=== PATIENT | male | born 1995 | race African-American/Black ===

== ENCOUNTER 2018-07-28 16:48 | Emergency (ER) | payer MEDICAID ==
[2018-07-28 18:01] LABS: ABSOLUTE BASOPHILS # (AUTO) 0.1 10^3/uL (0.0-0.2); ABSOLUTE EOSINOPHILS # (AUTO) 0.1 10^3/uL (0.0-0.6); ABSOLUTE MONOCYTES (AUTO) 0.8 10^3/uL (0.1-1.4); ABSOLUTE NEUT (AUTO) 6.9 10^3/uL (1.7-8.2); BASOPHILS % (AUTO) 0.6 % (0-2); EOSINOPHILS % (AUTO) 0.7 % (0-6); HEMATOCRIT 41.7 % (37.9-51.0); HEMOGLOBIN 14.2 g/dL (13.5-17.0); LYMPHOCYTES % (AUTO) 19.9 % (13-45); MEAN CORPUSCULAR HEMOGLOBIN 29.8 pg (27.0-33.4); MEAN CORPUSCULAR HGB CONC 34.1 g/dL (32.0-36.0); MEAN CORPUSCULAR VOLUME 87 fl (80-97); MONOCYTES % (AUTO) 8.1 % (3-13); PLATELET COUNT 157 10^3/uL (150-450); RED BLOOD COUNT 4.78 10^6/uL (4.35-5.55); RED CELL DISTRIBUTION WIDTH 13.4 % (11.5-14.0); SEGMENTED NEUTROPHILS % (AUTO) 70.7 % (42-78); TOTAL CELLS COUNTED % (AUTO) 100 %; WHITE BLOOD COUNT 9.8 10^3/uL (4.0-10.5)
--- NOTE | 2018-07-28 18:24 | RADIOLOGY REPORT (SQ) ---
EXAM DESCRIPTION: CT FACIAL AREA WITHOUT COMPLETED DATE/TIME: 07/28/2018 6:08 pm REASON FOR STUDY: eval for mastoiditis COMPARISON: None. TECHNIQUE: Noncontrasted images through the facial bones and orbits windowed for bone and soft tissu e. Additional coronal and sagittal reconstructed images reviewed. All images stored on PACS. All CT scanners at this facility use dose modulation, iterative reconstruction, and/or weight based d osing when appropriate to reduce radiation dose to as low as reasonably achievable (ALARA). [facility]: Dose Right [facility]: CareDose [facility]: Dose Right [facility]: Teradose 4D [facility]: [employer] RADIATION DOSE: mGy. LIMITATIONS: None. FINDINGS: FACIAL BONES: No fracture or bone lesion. ORBITS: Intact. No fracture. Symmetric intact globes and retroorbital soft tissues. PARANASAL SINUSES: Clear. No significant mucosal thickening, mass or fluid. No nasal polyps. Maxill krystina sinus outlets are patent. SOFT TISSUES: Scattered small gas collections are identified in the superficial soft tissues on the r ight at the level of the parotid salivary gland and the possibility of an infectious process should b e considered. INFERIOR BRAIN: Limited view. No acute findings. OTHER: The mastoid air cells are well-aerated without evidence for mastoiditis. IMPRESSION: No CT evidence for mastoiditis. Scattered small gas collections in the superficial soft tissues on the right at the level of the parotid salivary gland and the possibility of an infectious process should be considered. Other findings as noted above TECHNICAL DOCUMENTATION: JOB ID: [id number] Quality ID # [id number]: Final reports with documentation of one or more dose reduction techniques (e.g., Au tomated exposure control, adjustment of the mA and/or kV according to patient size, use of iterative reconstruction technique) 2010 [employer]- All Rights Reserved Reading location - IP/workstation name: [email or web address]
[2018-07-28] MEDS ORDERED: IBUPROFEN 600 MG TABLET PO ONE (18:40)
[2018-07-28] MEDS ORDERED: AMOXICILLIN TRIHYDRATE 500 MG CAPSULE PO ONE (18:40)
[2018-07-28] MEDS ORDERED: AMOXICILLIN TR/POT CLAVULANATE 500-125 MG TAB PO ONE (18:40)
--- NOTE | 2018-07-28 18:44 | ER Document Report ---
HPI - HPI Pain Level: 2 Notes: Patient is a 23-year-old male who presents with chief complaint of right ear pain. Patient has autism and is accompanied by his mother. Patient is reporting the pain started last night. He states it feels like there is something in his ear. He denies any drainage. Mother reports no fevers that she is aware of. - CONSTITUTIONAL Constitutional: DENIES: Fever, Chills - EENT EENT: REPORTS: Ear Pain - right. DENIES: Sore Throat, Eye problems - NEURO Neurology: DENIES: Headache, Weakness, Vision blurred, Dizzinesss / Vertigo - CARDIOVASCULAR Cardiovascular: DENIES: Chest pain - RESPIRATORY Respiratory: DENIES: Trouble Breathing, Coughing - GASTROINTESTINAL Gastrointestinal: DENIES: Abdominal Pain, Black / Bloody Stools - URINARY Urinary: DENIES: Dysuria, Urgency, Frequency - MUSCULOSKELETAL Musculoskeletal: DENIES: Extremity pain - DERM Skin Color: Normal <AMRIT DELA CRUZ - Last Filed: 08/06/18 11:22> Past Medical History - General Information source: Patient, Parent - Social History Smoking Status: Never Smoker Chew tobacco use (# tins/day): No Frequency of alcohol use: None Drug Abuse: None Family History: Reviewed & Not Pertinent Patient has suicidal ideation: No Patient has homicidal ideation: No Renal/ Medical History: Denies: Hx Peritoneal Dialysis Past Surgical History: Reports: Hx Abdominal Surgery - hernia repair <AMRIT DELA CRUZ - Last Filed: 08/06/18 11:22> Vertical Provider Document - CONSTITUTIONAL Notes: PHYSICAL EXAMINATION: GENERAL: Well-appearing, well-nourished and in no acute distress. HEAD: Atraumatic, normocephalic. EYES: Pupils equal round extraocular movements intact, conjunctiva are normal. ENT: Nares patent, tenderness to palpation over right mastoid. TM pearly serrano, no erythema or exudates noted in the canal. NECK: Normal range of motion LUNGS: No respiratory distress Musculoskeletal: Normal range of motion NEUROLOGICAL: Normal speech, normal gait. PSYCH: Normal mood, normal affect. SKIN: Warm, Dry, normal turgor, no rashes or lesions noted. <AMRIT DELA CRUZ - Last Filed: 08/06/18 11:22> Course - Vital Signs Vital signs: Temp Pulse Resp BP Pulse Ox 98.0 F 66 16 136/72 H 100 10/29/18 19:18 07/28/18 19:18 07/28/18 19:18 07/28/18 19:18 07/28/18 19:18 - Laboratory Result Diagrams: 07/28/18 17:48 <ROSANNE REYES - Last Filed: 07/30/18 13:06> - Re-evaluation Re-evalutation: Consulted who came to the patient's bedside to evaluate the patient. He recommends ordering a CT of the facial bones to evaluate for mastoiditis. CT of the facial bones is negative for mastoiditis. CT does show possible salivary gland infection. Patient will be placed on Augmentin. Close follow- up with primary care. - Vital Signs Vital signs: Temp Pulse Resp BP Pulse Ox 98.9 F 86 16 129/69 H 98 07/28/18 16:53 07/28/18 16:53 07/28/18 16:53 07/28/18 16:53 07/28/18 16:53 - Laboratory Result Diagrams: 07/28/18 17:48 <AMRIT DELA CRUZ - Last Filed: 08/06/18 11:22> Discharge <ROSANNE REYES - Last Filed: 07/30/18 13:06> <AMRIT DELA CRUZ - Last Filed: 08/06/18 11:22> - Discharge Clinical Impression: Salivary gland infection, Ear pain, right Condition: Stable Disposition: HOME, SELF-CARE Additional Instructions: Please have him take the antibiotics as prescribed. Give him 600 mg of ibuprofen every 6 hours, this will not only help with the pain but also the inflammation. You may also apply some warm compresses to the area as this may give him some symptomatic relief. We would like him to be re-seen in the emergency department in 2 days for a follow-up or you can also choose to see an ENT doctor which I have provided contact information for we are happy to reevaluate him here if you are unable to get an appointment anywhere else. Prescriptions: Amox Tr/Potassium Clavulanate [Augmentin 875-125 mg Tablet] 1 tab PO BID #20 tablet Referrals: MISHA PRUITT DO [ASSOCIATE] - Follow up as needed
[2018-07-28 19:22] VITALS: BP 136/72
== END 2018-07-28 19:22 | disposition home or self-care (01) ==
LOC: ER 16:48
DX: L04.0 Acute lymphadenitis of face, head and neck (principal); H92.01 Otalgia, right ear; F84.0 Autistic disorder
CPT/HCPCS: 99283; 36415; 85025; 70486; J3490 ×2

== ENCOUNTER 2018-07-30 12:13 | Emergency (ER) | payer MEDICAID ==
[2018-07-30 12:44] VITALS: BP 120/67
[2018-07-30] MEDS ORDERED: LIDOCAINE 1% INJ-PF (10 MG/ML) 30 ML SDV INJ ONE (13:27)
[2018-07-30] MEDS ORDERED: CEFTRIAXONE INJ 1000 MG VIAL IM ONE (13:27)
--- NOTE | 2018-07-30 13:31 | ER Document Report ---
HPI - HPI Patient complains to provider of: Recheck Onset: Other - 2 days ago Onset/Duration: Better Pain Level: Denies Context: Patient presents for recheck of right sided redness and swelling around his right ear. Patient was treated here 2 days ago for salivary gland infection and placed on Augmentin. Mother states that they were advised to return in 2 days for recheck. Mother denies any fever and patient has been compliant with medication. Associated Symptoms: Other - Swelling and redness about the right ear. denies: Fever Exacerbated by: Denies Relieved by: Denies Similar symptoms previously: No Recently seen / treated by doctor: Yes - ROS ROS below otherwise negative: Yes Systems Reviewed and Negative: Yes All other systems reviewed and negative - CONSTITUTIONAL Constitutional: DENIES: Fever, Chills - EENT EENT: REPORTS: Ear Pain - NEURO Neurology: DENIES: Headache - GASTROINTESTINAL Gastrointestinal: DENIES: Nausea - MUSCULOSKELETAL Musculoskeletal: DENIES: Neck Pain - DERM Skin Color: Erythema Past Medical History - General Information source: Patient, Parent Cannot obtain history due to: Mentally challenged - Autism - Social History Smoking Status: Never Smoker Frequency of alcohol use: None Drug Abuse: None Lives with: Family Family History: Reviewed & Not Pertinent Patient has suicidal ideation: No Patient has homicidal ideation: No - Medical History Medical History: Other - Autism Renal/ Medical History: Denies: Hx Peritoneal Dialysis Past Surgical History: Reports: Hx Abdominal Surgery - hernia repair Vertical Provider Document - CONSTITUTIONAL Agree With Documented VS: Yes Exam Limitations: No Limitations General Appearance: WD/WN, No Apparent Distress - INFECTION CONTROL TRAVEL OUTSIDE OF THE [place] IN LAST 30 DAYS: No - HEENT HEENT: Atraumatic, Normocephalic Notes: Mild erythema to right postauricular area overlying the mastoid area. Subtle projection of the right helix. No mastoid tenderness, no external auditory canal swelling. Right normal TM. - NECK Neck: Normal Inspection, Supple - RESPIRATORY Respiratory: Breath Sounds Normal, No Respiratory Distress - CARDIOVASCULAR Cardiovascular: Regular Rate, Regular Rhythm - BACK Back: Normal Inspection - MUSCULOSKELETAL/EXTREMETIES Musculoskeletal/Extremeties: MAEW - NEURO Level of Consciousness: Awake, Alert, Appropriate Motor/Sensory: No Motor Deficit - DERM Integumentary: Warm, Dry Course - Re-evaluation Re-evalutation: 07/30/18 13:28 Dr. Piedra to bedside for consultation. Dr. Piedra did evaluate patient 2 days ago for this complaint and states that area of erythema and swelling is markedly improved. Recommends giving Rocephin 1 g IM and having patient continue to take the Augmentin as previously prescribed. No concern for malignant otitis or mastoiditis at this time. - Vital Signs Vital signs: Temp Pulse Resp BP Pulse Ox 98.1 F 57 L 15 120/67 100 07/30/18 12:44 07/30/18 12:44 07/30/18 12:44 07/30/18 12:44 07/30/18 12:44 - Diagnostic Test Radiology reviewed: Reports reviewed - Reviewed CT from previous ER visit Discharge - Discharge Clinical Impression: Ear pain, right Cellulitis Qualifiers: Site of cellulitis: head Qualified Code(s): L03.811 - Cellulitis of head [any part, except face] Condition: Stable Disposition: HOME, SELF-CARE Instructions: Augmentin ([facility]), Cellulitis ([facility]), Rocephin ([facility]) Additional Instructions: Return immediately for any new or worsening symptoms Followup with your primary care provider, call tomorrow to make a followup appointment Continue to take medications as previously prescribed. Follow-up with ear nose and throat doctor as previously instructed. Referrals: MISHA PRUITT DO [ASSOCIATE] - Follow up tomorrow
== END 2018-07-30 14:00 | disposition home or self-care (01) ==
LOC: ER 12:13
DX: L03.811 Cellulitis of head [any part, except face] (principal); H92.01 Otalgia, right ear; F84.0 Autistic disorder
CPT/HCPCS: 99282; 96372; J3490; J0696